=== PATIENT | female | born 1985 | race Caucasian/White ===

== ENCOUNTER 2016-03-25 13:00 | Emergency (ER) | payer MEDICAID, OTHER ==
[2016-03-25 13:07] VITALS: O2SAT 97
[2016-03-25] MEDS ORDERED: BENADRYL 50 MG/ML IV ONE (13:15)
[2016-03-25] MEDS ORDERED: Pepcid 20 MG VIAL IV ONE ×2 (13:15→13:20)
[2016-03-25] MEDS ORDERED: BENADRYL 50 MG/ML ONE (13:20)
--- NOTE | 2016-03-25 13:22 | ERPHSYRPT ---
- History of Present Illness Time Seen by Provider: 03/25/16 13:09 Source: patient Patient Subjective Stated Complaint: CP Triage Nursing Assessment: HAD INTERMITTENT CP FOR PAST MONTH BUT CONSTANT FOR PAST 24 HOURS. STATES 'BURPING USUALLY MAKES IT GO AWAY BUT IT WONT TODAY' C/O MID STERNAL CP WORSE WITH TURNING AND LAYING ON LT AND RT SIDE. DENIES NAUSEA. SLIGHT SOB. DENIES UPPER RESP, N/V/D. Physician History: CC: chest pain Hx: 30 y/o patient of Dr Strong with chest pain since yesterday. She has no shortness of breath. Describes pressure sensation. She has had this pain for over a month but it usually goes away with belching. Now worse and has been persisting since yesterday. No fever or chills. No cough. Allergies/Adverse Reactions: No Known Drug Allergies Allergy (Unverified 03/25/16 13:06) Home Medications: No Home Meds 1 ea UD 03/25/16 [History] Hx Tetanus, Diphtheria Vaccination/Date Given: Yes Hx Influenza Vaccination/Date Given: No Hx Pneumococcal Vaccination/Date Given: No Immunizations Up to Date: Yes - Review of Systems Constitutional: No Fever, No Chills Eyes: No Symptoms Ears, Nose, & Throat: No Symptoms Respiratory: No Cough, No Dyspnea Cardiac: Chest Pain, No Edema Abdominal/Gastrointestinal: Nausea, No Abdominal Pain, No Vomiting, No Diarrhea Genitourinary Symptoms: No Dysuria Skin: No Rash Neurological: No Headache All Other Systems: Reviewed and Negative - Past Medical History Pertinent Past Medical History: No - Past Surgical History Past Surgical History: No - Social History Smoking Status: Never smoker Exposure to second hand smoke: Yes Drug Use: none Patient Lives Alone: No - Female History Hx Last Menstrual Period: CURRENT - Nursing Vital Signs Nursing Vital Signs: Initial Vital Signs Temperature 97.7 F Temperature Source Oral Pulse Rate [Bilateral Radial] 80 Pulse Rate 80 Respiratory Rate 18 Blood Pressure 107/74 Pain Intensity 6 - Physical Exam General Appearance: alert Eye Exam: PERRL/EOMI Ears, Nose, Throat Exam: normal ENT inspection, moist mucous membranes Neck Exam: normal inspection, non-tender, supple Respiratory Exam: normal breath sounds, lungs clear Cardiovascular Exam: regular rate/rhythm, No murmur, No friction rub, No gallop Gastrointestinal/Abdomen Exam: soft, No tenderness, No distention Extremity Exam: normal inspection, normal range of motion Neurologic Exam: alert, oriented x 3, cooperative Skin Exam: warm, dry, No rash SpO2 Interpretation: normal SpO2: 97 Oxygen Delivery: Room Air - Course Nursing assessment & vital signs reviewed: Yes EKG Interpreted by Me: RATE (83), Sinus Rhythm, NORMAL AXIS, NORMAL INTERVALS ( QTc 421), NORMAL QRS, NORMAL ST-T - Radiology Exams cxr X-ray Interpretation: Reviewed by me, Negative Ordered Tests: Active Orders 24 hr Category Date Time Status EKG-ER Only STAT Care 03/25/16 13:15 Active IV Insertion STAT Care 03/25/16 13:15 Active CHEST 2 VIEWS (PA AND LAT) Stat Exams 03/25/16 13:15 Taken CBC W DIFF Stat Lab 03/25/16 13:24 Completed CMP Stat Lab 03/25/16 13:24 Completed HCG QUALITATIVE,SERUM Stat Lab 03/25/16 13:24 Completed LIPASE Stat Lab 03/25/16 13:24 Completed TROPONIN Q3H Lab 03/25/16 13:24 Completed TROPONIN Q3H Lab 03/25/16 16:30 Ordered TROPONIN Q3H Lab 03/25/16 19:30 Ordered TROPONIN Q3H Lab 03/25/16 22:30 Ordered TROPONIN Q3H Lab 03/26/16 01:30 Ordered Medication Summary Discontinued Medications Generic Name Dose Route Start Last Admin Trade Name Freq PRN Reason Stop Dose Admin Diphenhydramine HCl 25 mg 03/25/16 13:15 03/25/16 13:25 Benadryl 50 Mg/Ml IV 03/25/16 13:16 25 mg STAT ONE Administration Diphenhydramine HCl Confirm 03/25/16 13:20 Benadryl 50 Mg/Ml Administered 03/25/16 13:21 Dose 50 mg .ROUTE .STK-MED ONE Famotidine 20 mg 03/25/16 13:15 03/25/16 13:25 Pepcid 20 Mg Vial IV 03/25/16 13:16 20 mg STAT ONE Administration Famotidine Confirm 03/25/16 13:20 Pepcid 20 Mg Vial Administered 03/25/16 13:21 Dose 20 mg IV .STK-MED ONE Lab/Rad Data: Laboratory Result Diagrams 03/25/16 13:24 03/25/16 13:24 Laboratory Results 03/25/16 03/25/16 03/25/16 Range/Units 13:24 13:24 13:24 WBC (4.0-10.5) K/mm3 RBC (4.1-5.4) M/mm3 Hgb (12.0-16.0) gm/dl Hct (35-47) % MCV (78-100) fl MCH (26-32) pg MCHC (32-36) g/dl RDW (11.5-14.0) % Plt Count (150-450) K/mm3 MPV (6-9.5) fl Gran % (36.0-66.0) % Lymphocytes % (24.0-44.0) % Monocytes % (0.0-12.0) % Eosinophils % (0.00-5.0) % Basophils % (0.0-0.4) % Basophils # (0-0.4) Sodium 140 (136-145) mEq/L Potassium 4.8 (3.5-5.1) mEq/L Chloride 105 (98-107) mEq/L Carbon Dioxide 27.9 (21-32) mEq/L Anion Gap 12.2 (5-15) MEQ/L BUN 15 (9-20) mg/dL Creatinine 0.76 (0.55-1.30) mg/dl Estimated GFR > 60 ML/MIN Glucose 89 (70-110) MG/DL Calcium 9.0 (8.5-10.1) mg/dL Total Bilirubin 0.4 (0.2-1.0) mg/dL AST 23 (15-37) U/L ALT 16 (12-78) U/L Alkaline Phosphatase 58 (46-116) U/L Troponin I < 0.017 (0.000-0.056) ng/ml Serum Total Protein 7.7 (6.4-8.2) gm/dL Albumin 3.8 (3.4-5.0) g/dL Lipase 200 (73-393) U/L Serum , Qual NEGATIVE (Negative) 03/25/16 Range/Units 13:24 WBC 7.1 (4.0-10.5) K/mm3 RBC 4.78 (4.1-5.4) M/mm3 Hgb 13.6 (12.0-16.0) gm/dl Hct 41.9 (35-47) % MCV 87.7 (78-100) fl MCH 28.5 (26-32) pg MCHC 32.5 (32-36) g/dl RDW 12.7 (11.5-14.0) % Plt Count 194 (150-450) K/mm3 MPV 9.9 H (6-9.5) fl Gran % 53.6 (36.0-66.0) % Lymphocytes % 35.3 (24.0-44.0) % Monocytes % 5.8 (0.0-12.0) % Eosinophils % 4.9 (0.00-5.0) % Basophils % 0.4 (0.0-0.4) % Basophils # 0.03 (0-0.4) Sodium (136-145) mEq/L Potassium (3.5-5.1) mEq/L Chloride (98-107) mEq/L Carbon Dioxide (21-32) mEq/L Anion Gap (5-15) MEQ/L BUN (9-20) mg/dL Creatinine (0.55-1.30) mg/dl Estimated GFR ML/MIN Glucose (70-110) MG/DL Calcium (8.5-10.1) mg/dL Total Bilirubin (0.2-1.0) mg/dL AST (15-37) U/L ALT (12-78) U/L Alkaline Phosphatase (46-116) U/L Troponin I (0.000-0.056) ng/ml Serum Total Protein (6.4-8.2) gm/dL Albumin (3.4-5.0) g/dL Lipase (73-393) U/L Serum , Qual (Negative) - Progress Progress Note: 03/25/16 14:01 Pt stable. She is low risk for heart disease. HEART score 0. Offered 3 hour troponin but she declines. Will try PPI and she will follow up with Dr Strong. Counseled pt/family regarding: lab results, diagnosis, need for follow-up, rad results - Departure Time of Disposition: 14:02 Departure Disposition: Home Clinical Impression: Chest pain Qualifiers: Chest pain type: unspecified Qualified Code(s): R07.9 - Chest pain, unspecified Condition: Stable Critical Care Time: No Referrals: TRISTEN STRONG [Primary Care Provider] - Instructions: Chest Pain Additional Instructions: [place] diet. Rx prilosec. Follow up this week with Dr Strong. Return for problems or concerns. Prescriptions: Omeprazole [Prilosec] 20 mg PO DAILY #30 capsule.
[2016-03-25 13:30] LABS: BASOPHIL % 0.4 % (0.0-0.4); Eosinophil % 4.9 % (0.00-5.0); Granulocytes % 53.6 % (36.0-66.0); Lymphocytes % 35.3 % (24.0-44.0); Mean Cell Volume 87.7 fl (78-100); Mean Corpuscular Hemoglobin 28.5 pg (26-32); Mean Platelet Volume 9.9 fl (6-9.5); Monocytes % 5.8 % (0.0-12.0); Platelet Count 194 K/mm3 (150-450); Red Blood Count 4.78 M/mm3 (4.1-5.4); Red Cell Distribution Width 12.7 % (11.5-14.0); White Blood Count 7.1 K/mm3 (4.0-10.5)
[2016-03-25 13:53] LABS: ALBUMIN 3.8 g/dL (3.4-5.0); ALKALINE PHOSPHATASE 58 U/L (46-116); ANION GAP 12.2 MEQ/L (5-15); BILIRUBIN,TOTAL 0.4 mg/dL (0.2-1.0); BLOOD UREA NITROGEN 15 mg/dL (9-20); CHLORIDE 105 mEq/L (98-107); Carbon Dioxide 27.9 mEq/L (21-32); Glucose 89 MG/DL (70-110); LIPASE 200 U/L (73-393); SGOT/AST 23 U/L (15-37); SGPT/ALT 16 U/L (12-78); SODIUM 140 mEq/L (136-145); Total Protein 7.7 gm/dL (6.4-8.2)
[2016-03-25 13:54] LABS: Potassium 4.8 mEq/L (3.5-5.1)
[2016-03-25 14:10] VITALS: BP 104/68; PULSE 78
--- NOTE | 2016-03-25 20:31 | XRAY ---
Indication: Left chest pain. Comparison: None PA/lateral chest demonstrates normal heart, lungs, and bony thorax.
== END 2016-03-25 14:10 | disposition home or self-care (01) ==
LOC: ED 13:00
DX: R07.89 Other chest pain (principal)
CPT/HCPCS: 36000; 36415; 71020; 80053; 83690; 84484; 84703; 85025; 93005; 96374; 96375; 99283; J1200